=== PATIENT | male | born 1980 | race Caucasian/White ===

== ENCOUNTER 2023-01-10 13:24 | Outpatient (RCR) | payer BC ==
[~2023-01-10 13:24] MED LIST: AMOXICILLIN 50500 MG PO; DIOVAN 160MG160 MG; FLEXERIL 1010 MG/TAB PO; HTN medication; METOPROLOL100 MG PO; MOTRIN 800800 MG/TAB PO; NORCO 325 MG-51 TAB PO; PERCOCET 325 MG1 TA2 PO; PROVIGIL200 MG PO
== END 2023-02-07 | disposition home or self-care (01) ==
LOC: WSPT
DX: M48.061 Spinal stenosis, lumbar region without neurogenic claudication (principal); M43.16 Spondylolisthesis, lumbar region

== ENCOUNTER → 2023-04-11 | Outpatient (CLI) | payer BC | LOC: COL.RAD 09:43 → COL.VAS 09:52 | DX: Z01.818 Encounter for other preprocedural examination (principal); I10 Essential (primary) hypertension; R94.31 Abnormal electrocardiogram [ECG] [EKG] ==

== ENCOUNTER → 2024-07-21 | Outpatient (REF) | payer BC | LOC: ZCOL.LAB 15:51 | DX: H92.12 Otorrhea, left ear (principal) ==